=== PATIENT | female | born 1945 | race Caucasian/White ===

== ENCOUNTER 2019-05-21 03:29 | Observation (INO) ==
[2019-05-21] MEDS ORDERED: NORMAL SALINE 1,000 ML IV PRN (04:14)
[2019-05-21 04:15] LABS: Hematocrit 39.1 % (37.0-47.0); Hemoglobin 12.9 gm/dL (12.5-16.0); Mean Corpuscular Hemoglobin 32.3 pg (27-31); Mean Platelet Volume 10.3 fl (8-12.5); Neutrophil # 4.3 K/mm3 (1.3-6.0); Neutrophil % 66.6 % (42-75.0); Platelet Count 195 K/mm3 (150-450); Red Blood Count 3.99 M/mm3 (4.2-5.4); Red Cell Distribution Width 12.7 % (11.5-14.0); Urine Bilirubin Negative (NEGATIVE); Urine Blood Negative /ul (NEGATIVE); Urine Ketone Negative (NEGATIVE); Urine Nitrite Negative (NEGATIVE); Urine Protein Negative (NEGATIVE); Urine Urobilinogen Normal (NORMAL); Urine pH 7.5 pH (5.0-7.0); White Blood Count 6.5 K/mm3 (4.0-10.5)
--- NOTE | 2019-05-21 04:15 | ERNOTE ---
Dizziness ER Record Date of Service: 05/21/19 Presenting Symptoms: dizziness Time Seen by Provider: 05/21/19 03:47 Source: patient Exam Limitations: no limitations Immunizations: IMMUNIZATION HX Immunizations Up to Date Yes History of Influenza Vaccine No Hx Pneumococcal Vaccination No Allergies/Adverse Reactions: Allergies Allergy/AdvReac Type Severity Reaction Status Date / Time No Known Allergies Allergy Verified 05/21/19 03:35 Home Medications: HOME MEDICATIONS metFORMIN HCL [Metformin HCl] 500 mg PO BID #60 tab 11/26/17 [Last Taken 01/14/19] acarbose 50 mg tablet 50 mg PO TID #270 tab 06/08/18 [Last Taken 01/14/19] Multivitamin [One-Daily Multi-Vitamin] 1 tab PO DAILY 05/21/19 [Last Taken Unknown] Pioglitazone HCl 15 mg PO DAILY 05/21/19 [Last Taken Unknown] sitaGLIPtin PHOSPHATE [Januvia] 100 mg pe PO DAILY 05/21/19 [Last Taken Unknown] - History of Present Illness Narrative: Patient is brought to the emergency room by her significant other. She is reporting dizziness. She reports symptoms started yesterday. She had recently been to her PCPs office for preop exam for bilateral carpal tunnel procedure. She did not have the symptoms at that time. She takes medication only for diabetes. Her blood pressure during the visit was essentially normal. She reports that after that visit she developed this dizziness. It occurs only when standing. She does admit that she has not been drinking much fluid. She denies other symptoms. No fever, no upper respiratory symptoms, no chest pain. She does not have a headache. She has not had a fall. No shortness of breath. She denies that the symptoms feel like vertigo, she states it is more like lightheadedness. She denies symptoms at all while laying on the exam bed. She does not have symptoms when turning the head Date (Duration): 05/20/19 Timing and Duration: still present Associated Symptoms: Present: light headedness. Absent: hearing loss, ringing/roaring in ear, headache, weakness, numbness Decreased ability to stand/walk:: Present: weak, difficult Review of Systems - Review of Systems Constitutional: Present: no symptoms reported EYE: Present: no symptoms reported ENT: Present: no symptoms reported Respiratory: Present: no symptoms reported Cardiology: Present: no symptoms reported Gastrointestinal/Abdominal: Present: no symptoms reported Genitourinary: Present: no symptoms reported Musculoskeletal: Present: no symptoms reported Neurological: Present: dizziness/light-headedness Endocrine: Present: no symptoms reported Medical History (Updated 05/18/19 @ 09:24 by Josh Brock DO) Carpal tunnel syndrome on both sides (Chronic) Type 2 diabetes mellitus (Chronic) Fracture dislocation of ankle (Chronic) Shaina ORIF 01/14/19 Nocturia more than twice per night (Acute) Paresthesia of both feet (Chronic) Paresthesia and pain of both upper extremities (Acute) pt denies Ankle fracture, left Onset Date: 01/10/19 Diabetic macular edema Background diabetic retinopathy Surgical History: Surgical History (Updated 01/31/19 @ 10:47 by Boni Yen MA) H/O tubal ligation Onset Date: Unknown History of open reduction and internal fixation (ORIF) procedure Onset Date: ~01/14/19 Open reduction internal fixation left medial and lateral malleolus ankle fracture. Closed treatment of left posterior malleolus fracture Intra-operative interpretation of radiographs. Dr. Merritt Family History: Family History (Last Reviewed 05/21/19 @ 04:07 by Molly Mendoza MD) Mother No problems noted. Father Colon cancer Aunt Diabetes Social History: (Last Reviewed 05/21/19 @ 04:07 by Mloly Mendoza MD) Social History: Marital status: household members: spouse, children number of children: 3 current occupational status: retired current occupation: retired Highest education level completed: high school graduate Service: No Tobacco: Smoking Status: Never smoker Alcohol: alcohol intake: never Substance Use: substance use type: does not use Dietary Habits: caffeine: No Physical Exam - Physical Exam General Appearance: Present: wd/wn - blood sugar on arrival is 137., alert, no apparent distress Head Exam: Present: normal inspection, no evidence of injury Eye Exam: Normal inspection: bilateral, PERRL: bilateral, EOMI: bilateral Ears, Nose, Throat: Present: normal ENT inspection Neck: Present: normal inspection, nontender Respiratory: Present: no respiratory distress, normal breath sounds Cardiovascular/Chest: Present: regular rate, rhythm, no murmur, normal peripheral pulses Gastrointestinal/Abdominal: Present: normal bowel sounds, nontender, nondistended, soft Extremity Exam: Present: normal inspection, no edema Neurological Exam: Present: alert, oriented, normal mood/affect, no motor/sensory deficits, other - There is no arm drift, smiles intact, no tongue deviation. Speech is normal. Her neurologic exam is nonfocal. Her gait is slightly abnormal in that she is unsteady, she states that she feels dizzy yet she can walk normally with some vague unsteadiness. she reaches for the wall. no foot drop. no leg weakness. . Absent: facial droop, motor weakness Skin Exam: Present: normal color Lymphatic Exam: Present: no adenopathy Progress - Results and Orders Patient's Lab Results:: I have reviewed the patient's lab results. Results and Orders: Laboratory Tests 05/21/19 05/21/19 05/21/19 04:10 04:10 04:10 WBC 6.5 D Hgb 12.9 Hct 39.1 Plt Count 195 Sodium 139 Potassium 3.5 Chloride 102 BUN 22 Creatinine 0.70 Random Glucose 131 H Lactic Acid, Venous 0.3 L AST 13 ALT 11 L - Vital Signs Patient's Vital Signs:: I have reviewed the patient's vital signs. Vital Signs: Vital Signs 05/21/19 03:31 05/21/19 03:38 Temperature 36.5 C Pulse Rate 88 90 Respiratory Rate 16 Blood Pressure 187/91 H O2 Sat by Pulse Oximetry 97 - EKG EKG #1 EKG read: Reviewed by me EKG Comments: EKG shows normal sinus rhythm, rate of 87. 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 - CT/Ultrasound CT/Ultrasound Narrative: Head CT reveals a small old ischemic event in the left lobe of the cerebellum. Again, this is not new. - Progress/Reassessment Chief Complaint: Dizziness Progress:: Unchanged Progress Note-Subjective: 05/21/19 05:42 I spoke with the patient and reviewed her findings. I also spoke with the hospitalist here and discussed the case. My concern is for another new acute cerebellar stroke although she has aged out of any intervention. Her onset was yesterday at 4 PM and she did not present until far outside of any intervention window. I am recommending that she be admitted here for additional work-up of any potential cerebellar stroke including MRI etc. Hospitalist agrees and the patient will be admitted. Departure Clinical Impression: Loss of balance - Departure Disposition: Still a patient Condition: Fair Referrals: Josh Brock DO [Primary Care Provider] -
[2019-05-21 04:20] LABS: Urine Appearance Clear (CLEAR); Urine Bacteria None Seen; Urine Color Yellow; Urine RBC None Seen /hpf (0-5); Urine WBC None Seen /hpf (0-5)
[2019-05-21 04:28] LABS: Albumin * 3.8 gm/dl (3.4-5.0); Anion Gap 9.4 mmol/L (6.8-13.8); BUN/Creatinine Ratio 31.4 (9.0-21.6); Bilirubin, Total 0.3 mg/dL (0.0-1.1); Ca. Corrected For Albumin 8.6 mg/dL (8.4-10.2); Calcium * 8.8 mg/dL (7.9-10.9); Carbon Dioxide 31.1 mmol/L (24-32.6); Potassium 3.5 mmol/L (3.4-4.6); Total Protein 7.8 gm/dL (6.2-8.2)
[2019-05-21] MEDS ORDERED: MECLIZINE HCL 12.5 MG TABLET PO PRN (12:24)
--- NOTE | 2019-05-21 15:29 | HP ---
Chief Complaint - Chief Complaint Date of Service: 05/21/19 Time of Service: 09:15 Chief Complaint: Dizziness and unsteady gait x1 day. History of Present Illness: 73-year-old female with a past medical history of diabetes type 2, diabetic retinopathy, paresthesias of both feet, nocturia presents with complaint of dizziness and loss of balance. Onset was yesterday afternoon. She presented to the emergency department early this morning around 3 AM. She states she has never had these symptoms before. She had a CT scan in the emergency department that showed no acute intracranial process, chronic microvascular ischemic disease. She was admitted for further evaluation and monitoring and to possibly obtain MRI in the morning. Medical History (Updated 05/21/19 @ 05:42 by Molly Mendoza MD) Carpal tunnel syndrome on both sides (Chronic) Type 2 diabetes mellitus (Chronic) Fracture dislocation of ankle (Chronic) Shaina ORIF 01/14/19 Nocturia more than twice per night (Acute) Paresthesia of both feet (Chronic) Paresthesia and pain of both upper extremities (Acute) pt denies Ankle fracture, left Onset Date: 01/10/19 Diabetic macular edema Background diabetic retinopathy Surgical History: Surgical History (Updated 01/31/19 @ 10:47 by Boni Yen MA) H/O tubal ligation Onset Date: Unknown History of open reduction and internal fixation (ORIF) procedure Onset Date: ~01/14/19 Open reduction internal fixation left medial and lateral malleolus ankle fracture. Closed treatment of left posterior malleolus fracture Intra-operative interpretation of radiographs. Dr. Merritt Family History: Family History (Last Reviewed 05/21/19 @ 09:36 by Lakesha Oconnell RN) Mother No problems noted. Father Colon cancer Aunt Diabetes Social History: (Last Reviewed 05/21/19 @ 09:37 by Lakesha Oconnell RN) Social History: Marital status: household members: spouse, children number of children: 3 current occupational status: retired current occupation: retired Highest education level completed: high school graduate Service: No Tobacco: Smoking Status: Never smoker Alcohol: alcohol intake: never Substance Use: substance use type: does not use Dietary Habits: caffeine: No Review Of Systems (GEN) - Review of Systems Generalized/Overall Review: Absent: Fever Respiratory: Absent: Shortness of Breath Cardiac: Absent: Chest Pain Abdominal: Absent: Abdominal Pain Neurological: Present: Other - Dizziness and unstable gait Misc: All systems neg except as marked Immunizations: IMMUNIZATION HX Immunizations Up to Date Yes History of Influenza Vaccine No Hx Pneumococcal Vaccination No Allergies/Adverse Reactions: Allergies Allergy/AdvReac Type Severity Reaction Status Date / Time No Known Allergies Allergy Verified 05/21/19 09:37 Home Medications: HOME MEDICATIONS metFORMIN HCL [Metformin HCl] 500 mg PO BID #60 tab 11/26/17 [Last Taken 01/14/19] acarbose 50 mg tablet 50 mg PO TID #270 tab 06/08/18 [Last Taken 01/14/19] Multivitamin [One-Daily Multi-Vitamin] 1 tab PO DAILY 05/21/19 [Last Taken Unknown] Pioglitazone HCl 15 mg PO DAILY 05/21/19 [Last Taken Unknown] sitaGLIPtin PHOSPHATE [Januvia] 100 mg pe PO DAILY 05/21/19 [Last Taken Unknown] Exam - Exam Vital Signs: Vital Signs - Last Taken Temp 36.8 C 05/21/19 14:40 Pulse 84 05/21/19 14:40 Resp 16 05/21/19 14:40 BP 129/61 05/21/19 14:40 Pulse Ox 97 05/21/19 14:40 Constitutional: Present: Alert, Cooperative, Well developed, Well nourished, Elderly ENT Exam: Present: hearing grossly normal Eye Exam: bilateral eye: normal inspection, PERRL, EOMI Neck: Present: non-tender, supple, trachea midline. Absent: lymphadenopathy (R), lymphadenopathy (L) Back Exam: Present: normal inspection, no vertebral tenderness Respiratory: Present: lungs clear, no respiratory distress, no accessory muscle use, No wheezing. Absent: crackles, rhonchi Cardiovascular/Chest: Present: normal peripheral pulses, regular rate, rhythm, no edema, no murmur Peripheral Pulses: dorsalis-pedis (R): 1+, dorsalis-pedis (L): 1+ Abdomen: Present: Normal bowel sounds, soft, nontender Extremity: Present: non-tender, no pedal edema Skin Exam: Present: normal color, warm/dry Neurologic: Present: no motor/sensory deficits, alert, normal mood/affect Appearance: Present: appropriate appearance Eye contact: Present: cooperative, good eye contact Thoughts: Present: normal mood /affect Diagnostic Studies: Abnormal Lab Results 05/21/19 05/21/19 05/21/19 Range/Units 04:10 04:10 04:10 RBC 3.99 L (4.2-5.4) M/mm3 MCH 32.3 H (27-31) pg Lymphocytes % 19.8 L (20-51) % Monocytes % 11.4 H (0.0-9) % Lymphocytes # 1.29 L (1.5-3.5) k/mm3 BUN/Creatinine Ratio 31.4 H (9.0-21.6) Random Glucose 131 H (70-110) mg/dL Lactic Acid, Venous 0.3 L (0.4-2.0) mmol/L ALT 11 L (19-67) U/L Laboratory Results WBC 6.5 K/mm3 (4.0-10.5) D 05/21/19 04:10 RBC 3.99 M/mm3 (4.2-5.4) L 05/21/19 04:10 Hgb 12.9 gm/dL (12.5-16.0) 05/21/19 04:10 Hct 39.1 % (37.0-47.0) 05/21/19 04:10 MCV 98.0 fl (78-100) 05/21/19 04:10 MCH 32.3 pg (27-31) H 05/21/19 04:10 MCHC 33.0 g/dl (32-36) 05/21/19 04:10 RDW 12.7 % (11.5-14.0) 05/21/19 04:10 Plt Count 195 K/mm3 (150-450) 05/21/19 04:10 MPV 10.3 fl (8-12.5) 05/21/19 04:10 Immature Gran % (Auto) 0.30 % (0.001-0.429) 05/21/19 04:10 Immature Gran # (Auto) 0.02 K/mm3 (0.000-0.0310) 05/21/19 04:10 66.6 % (42-75.0) 05/21/19 04:10 19.8 % (20-51) L 05/21/19 04:10 11.4 % (0.0-9) H 05/21/19 04:10 1.4 % (0.0-3.0) 05/21/19 04:10 0.5 % (0.0-1.0) 05/21/19 04:10 Nucleated RBC % 0.0 k/mm3 (0-1) 05/21/19 04:10 4.3 K/mm3 (1.3-6.0) 05/21/19 04:10 1.29 k/mm3 (1.5-3.5) L 05/21/19 04:10 0.7 k/mm3 (0.0-1.0) 05/21/19 04:10 0.1 k/mm3 (0.0-0.7) 05/21/19 04:10 Absolute Basophils 0.0 k/mm3 (0.0-0.1) 05/21/19 04:10 Sodium 139 mmol/L (132-142) 05/21/19 04:10 139 mmol/L (130-142) 05/21/19 04:10 Potassium 3.5 mmol/L (3.4-4.6) 05/21/19 04:10 Chloride 102 mmol/L (97-106) 05/21/19 04:10 Carbon Dioxide 31.1 mmol/L (24-32.6) 05/21/19 04:10 9.4 mmol/L (6.8-13.8) 05/21/19 04:10 BUN 22 mg/dL (3-23) 05/21/19 04:10 0.70 mg/dL (0.4-1.4) 05/21/19 04:10 Est GFR (Non-Af Amer) 87 mL/min (60-130) 05/21/19 04:10 31.4 (9.0-21.6) H 05/21/19 04:10 131 mg/dL (70-110) H 05/21/19 04:10 0.3 mmol/L (0.4-2.0) L 05/21/19 04:10 Calcium 8.8 mg/dL (7.9-10.9) 05/21/19 04:10 Calcium Adj for Albumin 8.6 mg/dL (8.4-10.2) 05/21/19 04:10 0.3 mg/dL (0.0-1.1) 05/21/19 04:10 AST 13 U/L (0-48) 05/21/19 04:10 ALT 11 U/L (19-67) L 05/21/19 04:10 77 U/L (50-170) 05/21/19 04:10 7.8 gm/dL (6.2-8.2) 05/21/19 04:10 3.8 gm/dl (3.4-5.0) 05/21/19 04:10 Yellow 05/21/19 04:10 Clear (CLEAR) 05/21/19 04:10 7.5 pH (5.0-7.0) 05/21/19 04:10 Ur Specific [place] 1.020 SP.GR. (1.005-1.010) 05/21/19 04:10 Negative mg/dL (NEGATIVE) 05/21/19 04:10 Negative mg/dL (NEGATIVE) 05/21/19 04:10 Negative mg/dL (NEGATIVE) 05/21/19 04:10 Negative /ul (NEGATIVE) 05/21/19 04:10 Negative (NEGATIVE) 05/21/19 04:10 Negative mg/dl (NEGATIVE) 05/21/19 04:10 Normal EU/dl (NORMAL) 05/21/19 04:10 Ur Leukocyte Esterase Negative /ul (NEGATIVE) 05/21/19 04:10 None seen /hpf (0-5) 05/21/19 04:10 None seen /hpf (0-5) 05/21/19 04:10 Ur Epithelial Cells 0-5 /hpf (0-5) 05/21/19 04:10 None seen (NONE) 05/21/19 04:10 No culture indicated 05/21/19 04:10 Assessment/Plan - Narrative Narrative: 73-year-old female with a past medical history of diabetes type 2, diabetic retinopathy, paresthesias of both feet, nocturia presents with complaint of dizziness and loss of balance. Onset was yesterday afternoon. She presented to the emergency department early this morning around 3 AM. She states she has never had these symptoms before. She had a CT scan in the emergency department that showed no acute intracranial process, chronic microvascular ischemic disease. She was admitted for further evaluation and monitoring and to possibly obtain MRI in the morning. In the morning after evaluating the patient I did not see any focal neurologic deficits. Physical therapy was consulted to assess for possible BPPV. Physical therapy stated that she is positive for BPPV and they did do therapeutic maneuvers to help relieve her symptoms. I will start her on low-dose meclizine 12.5 mg daily as needed per physical therapy's recommendation. She will be monitored and likely be discharged in the morning. - Assessment/Plan (1) BPPV (benign paroxysmal positional vertigo) Problem: Acute (2) Unstable gait Problem: Acute (3) Type 2 diabetes mellitus Problem: Chronic
--- NOTE | 2019-05-22 12:12 | DS ---
(1) BPPV (benign paroxysmal positional vertigo) Problem: Resolved Qualifiers: Laterality: left Qualified Code(s): H81.12 - Benign paroxysmal vertigo, left ear (2) Unstable gait Problem: Resolved (3) Type 2 diabetes mellitus Problem: Chronic Qualifiers: Diabetes mellitus long term care phlebotomist insulin use: without long term care phlebotomist use Description of Stay: 73-year-old female with a past medical history of diabetes type 2, diabetic retinopathy, paresthesias of both feet, nocturia presents with complaint of dizziness and loss of balance. Onset was yesterday afternoon. She presented to the emergency department early this morning around 3 AM. She states she has never had these symptoms before. She had a CT scan in the emergency department that showed no acute intracranial process, chronic microvascular ischemic disease. She was admitted for further evaluation and monitoring and to possibly obtain MRI in the morning. The morning of admission I did not see any focal neurologic deficits. Physical therapy was consulted to assess for possible BPPV. Physical therapy stated that she is positive for left BPPV and PT performed Cecilia's maneuver to help relieve her symptoms. She is feeling well today. Denies dizziness. She should follow- up with physical therapy on Thursday, May 23, 2019 for continued outpatient management. She should also follow-up with her primary care physician in 1 week. Physical therapy had recommended that she can use meclizine as needed for dizziness. She did not require any while in the hospital. I will not send her home on meclizine due to her age and the fact that meclizine is on [place] criteria of medications to avoid due to potential anticholinergic effects in the elderly. Procedures Performed: none Results and Findings: Lab Pending Results 05/21/19 04:10: WBC 6.5 D, RBC 3.99 L, Hgb 12.9, Hct 39.1, MCV 98.0, MCH 32.3 H, MCHC 33.0, RDW 12.7, Plt Count 195, MPV 10.3, Immature Gran % (Auto) 0.30, Immature Gran # (Auto) 0.02, Neutrophils % 66.6, Lymphocytes % 19.8 L, Monocytes % 11.4 H, Eosinophils % 1.4, Basophils % 0.5, Nucleated RBC % 0.0, Neutrophils # 4.3, Lymphocytes # 1.29 L, Monocytes # 0.7, Eosinophils # 0.1, Absolute Basophils 0.0 05/21/19 04:10: Sodium 139, Plasma Sodium 139, Potassium 3.5, Chloride 102, Carbon Dioxide 31.1, Anion Gap 9.4, BUN 22, Creatinine 0.70, Est GFR (Non-Af Amer) 87, BUN/Creatinine Ratio 31.4 H, Random Glucose 131 H, Calcium 8.8, Calcium Adj for Albumin 8.6, Total Bilirubin 0.3, AST 13, ALT 11 L, Alkaline Phosphatase 77, Total Protein 7.8, Albumin 3.8 05/21/19 04:10: Lactic Acid, Venous 0.3 L 05/21/19 04:10: Urine Color Yellow, Urine Appearance Clear, Urine pH 7.5, Ur Specific [place] 1.020, Urine Protein Negative, Urine Glucose (UA) Negative, Urine Ketones Negative, Urine Blood Negative, Urine Nitrate Negative, Urine Bilirubin Negative, Urine Urobilinogen Normal, Ur Leukocyte Esterase Negative, Urine RBC None seen, Urine WBC None seen, Ur Epithelial Cells 0-5, Urine Bacteria None seen, Urine Culture Comments No culture indicated Discharge Location: Home Disposition: Home self-care Condition: Fair Discharge Activity: Activity as tolerated Discharge Diet: Consistent carbs Referrals: Josh Brock DO [Primary Care Provider] - Complete Home Medications List: Complete Home Medication List: metFORMIN HCL [Metformin HCl] 500 mg PO BID #60 tab 11/26/17 acarbose 50 mg tablet 50 mg PO TID #270 tab 06/08/18 Multivitamin [One-Daily Multi-Vitamin] 1 tab PO DAILY 05/21/19 Pioglitazone HCl 15 mg PO DAILY 05/21/19 sitaGLIPtin PHOSPHATE [Januvia] 100 mg pe PO DAILY 05/21/19
[2019-05-22 14:35] VITALS: BP 136/72
== END 2019-05-22 14:50 | disposition home or self-care (01) ==
LOC: ER 03:29 → MS 06:09 → INTOOBSV 06:09 → MS 06:45
PROVIDERS: ADMIT Internal Medicine; ATTEND Internal Medicine
CPT/HCPCS: 36415; 70450; 80053; 81001; 83605; 85025; 93005; 96360; 97161; 99285; G0378